=== PATIENT | male | born 1945 | race Caucasian/White ===

== ENCOUNTER 2017-01-10 06:07 | Day surgery (SDC) | payer OTHER ==
[2017-01-05 16:45] LABS: HEMATOCRIT 37.2 % (40.0-51.0)
[2017-01-05 16:56] LABS: CHLORIDE, SERUM 100 MMOL/L (96-112); CO2 (CARBON DIOXIDE) 32 MMOL/L (24-34); CREATININE 1.64 MG/DL (0.70-1.30); GFR AFRICAN AMERICAN 48 ML/MIN (>=60); GFR NON AFRICAN AMERICAN 42 ML/MIN (>=60); POTASSIUM, SERUM 4.1 MMOL/L (3.5-5.3); SODIUM, SERUM 137 MMOL/L (135-148)
[2017-01-05 16:57] LABS: BUN (BLOOD UREA NITROGEN) 27 MG/DL (6-23); CALCIUM, SERUM 8.3 MG/DL (8.5-10.4); GLUCOSE, SERUM 216 MG/DL (60-99)
[~2017-01-10 06:07] MED LIST: ASAB PO; ATEN25 PO; ATEN50 PO; CIALIS10 MG PO; CINNAMON 500MG; DIABETA5 PO; GLUCOPHAGE1000 MG PO; GLUCPH PO; GLUCXL10 PO; JANUVIA100 MG PO; L20 PO; LANTUSCART SC; LEVEMIR SC; LISINOPRIL40 MG PO; LORTAB10 PO; LOVAZA1 GM PO; NITROSTAT0.4 MG SL; NORCO1 TAB PO; NORV5 PO; NOVOLOG SC; PRAVAC PO; PRIN20 PO; SYN.15 PO; XANAX1 MG PO
[2017-06-06] MEDS ORDERED: NORV5 PO (09:27)
[2017-06-06] MEDS ORDERED: CAT1 PO (09:28)
[2017-06-06] MEDS ORDERED: SYN125 PO (09:28)
[2017-06-06] MEDS ORDERED: NITROSTAT0.4 MG SL (09:28)
[2017-06-20] MEDS ORDERED: GLUCOPHAGE1000 MG PO (10:20)
== END 2017-01-10 07:25 | disposition home or self-care (01) ==
LOC: SDC 06:07
PROVIDERS: Orthopaedic Surgery
DX: M48.02 Spinal stenosis, cervical region (principal); E11.9 Type 2 diabetes mellitus without complications; Z53.9 Procedure and treatment not carried out, unspecified reason
CPT/HCPCS: 80048; 82962; 85014; 85018; 87641; 93005; J0690